=== PATIENT | female | born 1980 | race African-American/Black ===

== ENCOUNTER 2022-07-02 19:05 | Inpatient (IN) | payer OTHER ==
[2022-07-02] MEDS ORDERED: MISOPROSTOL 200 MCG TABLET ONE (21:01)
[2022-07-02 21:15] LABS: INR 0.92 (0.83-1.09); PROTHROMBIN TIME (PATIENT) 10.6 SEC (9.7-13.0)
[2022-07-02 21:18] LABS: ACTIVATED PTT 25.1 SECONDS (25.2-36.5)
[2022-07-02 21:31] VITALS: BMI 30.2
[2022-07-02] MEDS: MISOPROSTOL 200 MCG TABLET PV SCH (21:40)
[2022-07-02] MEDS: DEXTROSE 5%-LACTATED RINGERS 1,000 ML IV SCH (22:00)
[2022-07-02 22:50] LABS: HIV INTERPRETATION NEGATIVE (NEGATIVE)
[2022-07-03] MEDS ORDERED: MISOPROSTOL 200 MCG TABLET ONE ×3 (01:46→09:56)
[2022-07-03] MEDS: MISOPROSTOL 200 MCG TABLET PV SCH ×3 (01:55→10:56)
[2022-07-03] MEDS: DEXTROSE 5%-LACTATED RINGERS 1,000 ML IV SCH ×3 (05:45→21:30)
[2022-07-03] MEDS ORDERED: BUTORPHANOL TARTRATE 2 MG/ML VIAL ONE (06:07)
[2022-07-03] MEDS ORDERED: PROMETHAZINE HCL 25 MG/1 ML VIAL ONE (06:07)
[2022-07-03] MEDS ORDERED: PROMETHAZINE HCL 25 MG/1 ML VIAL IVPB ONE (06:10)
[2022-07-03] MEDS ORDERED: BUTORPHANOL TARTRATE 1 MG/ML VIAL IVPB ONE (06:10)
[2022-07-03] MEDS ORDERED: OXYTOCIN 30 UNITS in 0.9% NS 30 UNIT/500 ML INFUS.BAG IVPB SCH (11:00)
[2022-07-03] MEDS ORDERED: ceFAZolin SODIUM 1 GM VIAL ONE (11:17)
[2022-07-03] MEDS ORDERED: OXYTOCIN 30 UNITS in 0.9% NS 30 UNIT/500 ML INFUS.BAG IVPB ONE (11:17)
[2022-07-03] MEDS: CEFAZOLIN 1 GM in DEXTROSE 5%-WATER - 50 ML IVPB SCH ×2 (11:29→17:45)
[2022-07-03] MEDS: morphine SULFATE 4 MG/ML VIAL IVPUSH PRN (22:55)
[2022-07-04] MEDS ORDERED: ceFAZolin SODIUM 1 GM VIAL ONE ×2 (01:27→09:58)
[2022-07-04] MEDS: CEFAZOLIN 1 GM in DEXTROSE 5%-WATER - 50 ML IVPB SCH ×2 (02:00→10:13)
[2022-07-04] MEDS: DEXTROSE 5%-LACTATED RINGERS 1,000 ML IV SCH (06:49)
[2022-07-04] MEDS: morphine SULFATE 4 MG/ML VIAL IVPUSH PRN ×3 (07:30→14:45)
[2022-07-04] MEDS ORDERED: OXYTOCIN 20 UNITS in 0.9% NS 20 UNIT/1,000 ML INFUS.BAG IV ONE (15:52)
[2022-07-04] MEDS ORDERED: IBUPROFEN 600 MG TABLET (FP) PO PRN (17:27)
[2022-07-04] MEDS ORDERED: BENZOCAINE 20% 57 GM BOTTLE TP PRN (17:27)
[2022-07-04] MEDS ORDERED: OXYTOCIN 20 UNITS in 0.9% NS 20 UNIT/1,000 ML INFUS.BAG IV SCH (17:30)
[2022-07-04 21:03] LABS: HEMATOCRIT 33.2 % (32.4-45.2); HEMOGLOBIN 11.2 GM/dL (10.7-15.3); MCH 31.2 pg (25.7-33.7); MCHC 33.6 g/dl (32.0-36.0); MEAN CELL VOLUME 92.9 fl (80-96); MEAN PLT VOLUME 8.9 fl (7.5-11.1); PLATELET COUNT 206 10^3/uL (134-434); RBC 3.57 M/mm3 (3.60-5.2); RDW 13.4 % (11.6-15.6); WHITE BLOOD COUNT 28.8 K/mm3 (4.0-10.0)
[2022-07-04 22:14] LABS: ANISOCYTOSIS 1+; MACROCYTOSIS 0; PLATELET ESTIMATE NORMAL
[2022-07-04 22:53] VITALS: BP 122/67; PULSE 80; RESP 18; TEMP 97.9
== END 2022-07-04 22:45 | disposition home or self-care (01) | DRG 768 ==
LOC: JLDR 19:05
PROVIDERS: ADMIT Obstetrics & Gynecology Maternal & Fetal Medicine; ATTEND Obstetrics & Gynecology Maternal & Fetal Medicine
PROC: 0U9G7ZZ Drainage of Vagina, Via Natural or Artificial Opening (ICD-10-PCS; 2022-07-03)
PROC: 10E0XZZ Delivery of Products of Conception, External Approach (ICD-10-PCS; principal; 2022-07-04)
DX: O36.4XX0 Maternal care for intrauterine death, not applicable or unspecified (principal); Z37.1 Single stillbirth; Z3A.23 23 weeks gestation of pregnancy
CPT/HCPCS: 36415; 59409; 85025; 85610; 85730; 86762; 86780; 86850; 86900; 86901; 87340; 87389; 88307-TC

== ENCOUNTER 2023-10-16 20:30 | Inpatient (IN) | payer OTHER ==
[2023-10-16 21:35] LABS: BASO % 0.6 % (0-2.0); EOS % 1.7 % (0-4.5); HEMATOCRIT 34.6 % (32.4-45.2); HEMOGLOBIN 11.5 GM/dL (10.7-15.3); LYMPH % 20.9 % (8-40); MCH 29.5 pg (25.7-33.7); MCHC 33.2 g/dl (32.0-36.0); MEAN CELL VOLUME 88.8 fl (80-96); MEAN PLT VOLUME 8.8 fl (7.5-11.1); MONO % 10.5 % (3.8-10.2); NEUT % 66.3 % (42.8-82.8); PLATELET COUNT 223 10^3/uL (134-434); RBC 3.89 M/mm3 (3.60-5.2); RDW 13.6 % (11.6-15.6); WHITE BLOOD COUNT 11.3 K/mm3 (4.0-10.0)
[2023-10-16 21:41] LABS: INR 1.01 (0.83-1.09); PROTHROMBIN TIME (PATIENT) 11.7 SEC (9.7-13.0)
[2023-10-16 21:44] LABS: ACTIVATED PTT 28.4 SECONDS (25.2-36.5)
[2023-10-16] MEDS ORDERED: SODIUM CHLORIDE 1,000 ML IV STA (21:52)
[2023-10-16 22:27] VITALS: BMI 30.7
[2023-10-16 22:48] LABS: HIV INTERPRETATION NEGATIVE (NEGATIVE)
[2023-10-16 22:52] LABS: BLOOD UREA NITROGEN 3.2 mg/dL (7-18); CALCIUM 8.6 mg/dL (8.5-10.1); CREATININE 0.8 mg/dL (0.55-1.3); POTASSIUM 3.9 mmol/L (3.5-5.1)
[2023-10-16] MEDS: DEXTROSE 5%-LACTATED RINGERS 1,000 ML IV SCH (23:30)
[2023-10-17] MEDS ORDERED: SODIUM CHLORIDE 500 ML IV STA ×3 (05:00→18:26)
[2023-10-17] MEDS: DEXTROSE 5%-LACTATED RINGERS 1,000 ML IV SCH ×3 (05:30→22:00)
[2023-10-17] MEDS: MISOPROSTOL 25 MCG TABLET (COMPOUNDED BY PHARMACY) PV SCH ×7 (06:37→23:57)
[2023-10-17] MEDS ORDERED: morphine SULFATE 4 MG/ML VIAL ONE ×3 (08:13→19:19)
[2023-10-17] MEDS ORDERED: OXYTOCIN 30 UNITS in 0.9% NS 30 UNIT/500 ML INFUS.BAG IVPB SCH (08:15)
[2023-10-17] MEDS ORDERED: morphine SULFATE 4 MG/ML VIAL IVPB ONE ×2 (08:25→19:30)
[2023-10-17] MEDS ORDERED: OXYTOCIN 30 UNITS in 0.9% NS 30 UNIT/500 ML INFUS.BAG IVPB ONE (08:57)
[2023-10-18] MEDS ORDERED: SODIUM CHLORIDE 500 ML IV STA ×2 (00:07→04:08)
[2023-10-18] MEDS ORDERED: OXYTOCIN 20 UNITS in 0.9% NS 20 UNIT/1,000 ML INFUS.BAG IV ONE (00:39)
[2023-10-18] MEDS ORDERED: LIDOCAINE HCL 1% PRESERVATIVE FREE - 30ML VIAL ONE (00:39)
[2023-10-18 07:41] LABS: CORD BASE EXCESS -8.2 mmol/L (0-2); CORD HCO3 20.3 mmHg (20-29); CORD PCO2 52.3 mmHg (30-78); CORD pH 7.206 (7.14-7.44)
[2023-10-18] MEDS ORDERED: ACETAMINOPHEN 325 MG TABLET (FP) PO PRN (07:51)
[2023-10-18] MEDS ORDERED: WITCH HAZEL 50% (TUCKS) 40 PAD/JAR PAD TP PRN (07:51)
[2023-10-18] MEDS ORDERED: BENZOCAINE 28 GM HEMORRHOIDAL OINTMENT TP PRN (07:51)
[2023-10-18] MEDS ORDERED: OXYTOCIN 20 UNITS in 0.9% NS 20 UNIT/1,000 ML INFUS.BAG IV SCH (08:00)
[2023-10-18] MEDS: IBUPROFEN 600 MG TABLET (FP) PO PRN ×2 (11:23→19:02)
[2023-10-18] MEDS: PRENATAL VITAMINS W/ FOLIC ACID TABLET (FP) PO SCH (11:23)
[2023-10-18 18:17] VITALS: RESP 18
[2023-10-19] MEDS: IBUPROFEN 600 MG TABLET (FP) PO PRN ×3 (05:44→18:38)
[2023-10-19 07:46] LABS: HEMOGLOBIN 10.1 GM/dL (10.7-15.3); MCH 29.5 pg (25.7-33.7); MCHC 32.6 g/dl (32.0-36.0); MEAN CELL VOLUME 90.4 fl (80-96); MEAN PLT VOLUME 9.3 fl (7.5-11.1); PLATELET COUNT 196 10^3/uL (134-434); RBC 3.42 M/mm3 (3.60-5.2); RDW 13.9 % (11.6-15.6); WHITE BLOOD COUNT 25.5 K/mm3 (4.0-10.0)
[2023-10-19] MEDS: PRENATAL VITAMINS W/ FOLIC ACID TABLET (FP) PO SCH (09:55)
[2023-10-19 09:56] LABS: ANISOCYTOSIS 0; MACROCYTOSIS 0
[2023-10-20] MEDS: IBUPROFEN 600 MG TABLET (FP) PO PRN (00:45)
[2023-10-20 10:30] VITALS: BP 108/68; PULSE 76; TEMP 98
[2023-10-20] MEDS: PRENATAL VITAMINS W/ FOLIC ACID TABLET (FP) PO SCH (11:14)
== END 2023-10-20 14:00 | disposition home or self-care (01) | DRG 807 ==
LOC: JLDR 20:30 → J3W 10-18 09:30
PROVIDERS: ADMIT Obstetrics & Gynecology Maternal & Fetal Medicine; ATTEND Obstetrics & Gynecology Maternal & Fetal Medicine
PROC: 10E0XZZ Delivery of Products of Conception, External Approach (ICD-10-PCS; principal; 2023-10-17)
PROC: 3E0P7VZ Introduction of Hormone into Female Reproductive, Via Natural or Artificial Opening (ICD-10-PCS; 2023-10-17)
PROC: 3E033VJ Introduction of Other Hormone into Peripheral Vein, Percutaneous Approach (ICD-10-PCS; 2023-10-17)
PROC: 10907ZC Drainage of Amniotic Fluid, Therapeutic from Products of Conception, Via Natural or Artificial Opening (ICD-10-PCS; 2023-10-17)
PROC: 10H07YZ Insertion of Other Device into Products of Conception, Via Natural or Artificial Opening (ICD-10-PCS; 2023-10-17)
DX: O80 Encounter for full-term uncomplicated delivery (principal); Z37.0 Single live birth; O99.891 Other specified diseases and conditions complicating pregnancy; M32.9 Systemic lupus erythematosus, unspecified; Z3A.39 39 weeks gestation of pregnancy
CPT/HCPCS: 36415; 36600; 80048; 82803; 85025; 85610; 85730; 86780; 86850; 86900; 86901; 87389; 88307-TC